=== PATIENT | female | born 1985 | race Hispanic/Latino ===

== ENCOUNTER 2024-11-15 08:38 | Inpatient (IN) | payer OTHER, SELFPAY ==
[2024-11-13] VITALS (10 sets, daily range): BP systolic 137–173; BP diastolic 85–114
[2024-11-13] MEDS: NSS 1000 IV (04:27)
--- NOTE | 2024-11-13 04:32 | EDRN ---
patient ambulated to the restroom, dizzy with ambulation
[2024-11-13 04:48] LABS: Urine Character Cloudy (Clear)
[2024-11-13 04:49] LABS: Hematocrit 31.0 % (37.0-47.0); Hemoglobin 9.5 g/dL (12.0-16.0); Mean Corp Hgb Conc. 30.6 g/dL (33.0-37.0); Mean Corpuscular Volume 73.3 fL (81.0-99.0); Nucleated Red Blood Cells % 0 %; Platelet Count 335 10^3/uL (130-400); Red Cell Dist. Width 16.1 % (11.5-14.5)
[2024-11-13 04:57] LABS: HCG, Serum Qualitative Screen Negative
[2024-11-13 04:59] LABS: ALT (SGPT) 12 U/L (0-35); AST (SGOT) 19 U/L (14-36); Albumin 4.7 g/dl (3.5-5.0); Alkaline Phosphatase 96 U/L (38-126); Blood Urea Nitrogen 12 mg/dl (7-17); Calcium 9.4 mg/dl (8.4-10.2); Carbon Dioxide 24 mmol/L (22-30); Chloride 104 mmol/L (98-107); Glucose 140 mg/dl (70-99); Lipase 60 U/L (23-300); Potassium 3.8 mmol/L (3.5-5.1); Sodium 137 mmol/L (135-145); Total Protein 8.0 g/dl (6.3-8.2); eGFR > 60.00
--- NOTE | 2024-11-13 06:50 | EDRN ---
Patient needed to use the restroom, walked with patient into the bathroom, patient is unstable on her feet at this time due to dizziness.
--- NOTE | 2024-11-13 06:51 | ED.GENMED ---
History of Present Illness
General
Chief Complaint: Abdominal Symptoms
Source: patient
Exam Limitations: none
Time Seen by Provider: 11/13/24 06:18
Nursing documentation reviewed up to this point in time: agreed with
History of Present Illness
History of Present Illness:
39-year-old female 3 weeks of dizziness nausea vomiting
Denies headache denies abdominal pain denies alcohol
Non-smoker
Denies
If applicable-neuro sx onset
Onset of symptoms known: No
Time pt last seen normal is known: No
Phy Exam
Physical Exam
Physical Exam:
Physical Exam
General: 39 female who looks uncomfortable but nontoxic
Neck: No tongue bite
Heart: s1/s2 regular rate and rhythm, no murmur. equal radial pulses.
Lungs: no acute respiratory distress. clear bilaterally
Abdomen: Nontender
Neuro: alert and oriented. Normal [id number] bilaterally, right facial palsy
Skin: no rash
Psychiatric: cooperative
Extremities: no edema.
Course
Orders/Labs/Results
Orders:
Orders
11/13/24 03:52
IV Insert/Care/Rem.- Treatment PRN
Test Result ONCE
11/13/24 04:24
Complete Blood Count/With Diff Urgent
Comprehensive Metabolic Panel Urgent
Ferritin Urgent
Comment: ADD ON
Folate Urgent
Comment: ADD ON
HCG, Serum Qualitative Screen Urgent
Comment: Notify provider if positive test present
Iron Urgent
Comment: ADD ON
Lipase Urgent
Lyme Progressive Urgent
Date Specimen was Collected: 11/13/24
Time Specimen was Collected: 03:52
Comment: ADD ON
Total Iron Binding Urgent
Comment: ADD ON
Urinalysis Reflex To Culture Urgent
Date Specimen was Collected: 11/13/24
Time Specimen was Collected: 03:52
Vitamin B12 Urgent
Comment: ADD ON
11/13/24 04:26
0.9% Sodium Chloride 1000 ml [Nss] 1,000 ml IV BOLUS
11/13/24 06:36
CT Head W/o Iv Contrast Urgent
Comment:
Reason For Exam: nausea vomitign
Ondansetron Injectable [Zofran] 4 mg IV NOW STA
11/13/24 07:00
Add On- LAB Urgent
Tests Added?: Lyme progressive
11/13/24 08:33
NEUROLOGY CONSULT Urgent
Consulting Provider: Mauri Figueroa
Was physician already notified: Yes
11/13/24 08:40
Acetaminophen 1000MG/100Ml [Ofirmev] 1,000 mg in 100 ml IV ONCE
Acetaminophen IV Indication:: No CO & No Enteral Access
11/13/24 09:14
Brain W/O & With Contrast MR [MR Brain W/o & With Contrast] Stat
Comment:
Reason For Exam: stroke vs mass
OK for patient to be off Cardiac Monitoring for MRI: Yes
Recent pill cam endoscopy?: No
11/13/24 Lunch
Regular
At Your Request: Full Participation
Does patient need a safe tray?: No
11/13/24 11:51
CT Head & Neck Angio W/wo IV Urgent
Comment:
Reason For Exam: stroke possible dissection
11/13/24 12:17
Admit/Transfer Patient As Directed
Co-Sign Provider:
Level of Care: Observation services
Assign to:: Telemetry
Physician / Group: cliff conway
Diagnosis: acute cerebellar cva
Reason for Telemetry: CVA/TIA
Date to Stop Telemetry: 11/16/24
Time to Stop Telemetry: 11:00
Code Status As Directed
Resuscitation Status: Full Code
11/13/24 12:21
PRN Pain Medication Management As Directed
May give lesser potent ordered pain med per pt: Yes
preference::
Protocol:: Medication orders for pain may be administered in a
manner that supports deferring to patient preference
when the pt is:
- Requesting an ordered lesser potent pain medication.
Least to most potent pain medications are defined
as: acetaminophen < NSAID < tramadol < opioids
(morphine, oxycodone, hydromorphone).
- Requesting a lesser dose of the same medication IF
ORDERED.
- Requesting a less intrusive route of administration
if both routes are prescribed by the provider (PO <
IV).
11/13/24 12:29
Aspirin 325 mg PO NOW STA
Clopidogrel Bisulfate [Plavix] 300 mg PO NOW STA
11/13/24 12:30
Atorvastatin [Lipitor] 40 mg PO NOW STA
11/13/24 12:32
Add On- LAB Urgent
Tests Added?: iron, ferritin, tibc, b12 folate
11/13/24 13:48
Acetaminophen [Tylenol] 650 mg PO Q4HPRN PRN
Ondansetron Injectable [Zofran] 4 mg IV Q6HPRN PRN
11/13/24 13:48
Case Management Consult ONCE
Case Management Consult: Discharge Planning
Comment: stroke/tia
DIETARY IP CONSULT Routine
Reason for Consult: stroke/TIA
Waste Management Engineer Urgent
Activity As Directed
Activity Level: As Tolerated
NIH Stroke Scale As Directed
Directions: Per protocol
Comment: every shift and with any change in condition or mental status
Neurological Checks As Directed
Frequency: q4h
Additional Instructions:: q4h x 24h upon admission to the floor, then qshift & with any change in condition
and mental status
Patient Education As Directed
Type: Stroke education packet
Comment: provide to patient and family
Sequential Compression Device [Pneumatic Compression Sleeves] As Directed
Type: Knee high
Swallow Screening CVA/TIA ONLY As Directed
Comment: NPO until swallowing screening completed
If patient FAILS swallow screening:: NPO, Speech Therapy consult, Aspiration Precautions
If patient PASSES swallow screening, diet:: Regular
Above diet order entered?: Yes- passed screening
Vital Signs As Directed
Frequency: Per unit guidelines
Ot Eval And Treat Routine
Pt Eval And Treat Routine
Activity Level: As Tolerated
Speech Therapy Eval & Treat Routine
DX Deep Vein Thrombosis Video Routine
11/13/24 15:23
Comprehensive Metabolic Panel Routine
Glycohemoglobin (HgbA1c) Routine
11/14/24 06:00
Echo 2D MMode Color/Doppler IN AM
Reason for Study: acute cerebellar cva
11/14/24 06:22
Cardiovascular Evaluation IN AM
Complete Blood Count/With Diff IN AM
Magnesium IN AM
11/14/24 08:00
Aspirin Chewable [Low Strength Aspirin] 81 mg PO DAILY
Clopidogrel Bisulfate [Plavix] 75 mg PO DAILY
11/14/24 09:00
Flush (0.9% Sodium Chloride) [Flush (Nss)] See Dose Instructions IV PER PROTOCOL
11/14/24 11:00
dimenhyDRINATE 50 mg IV Q8H
11/14/24 11:15
0.9% Sodium Chloride [Nss (Preservative Free)] 10 ml INJ Q8
dimenhyDRINATE 50 mg IV Q8
11/14/24 12:00
0.9% Sodium Chloride [Nss (Preservative Free)] 10 ml INJ Q8H
dimenhyDRINATE 50 mg IV Q8H
11/14/24 12:27
MA [facility] [place] [facility] [place] [facility] [place] [facility] Routine
Reason For Exam: right cerebellar cva acute
OK for patient to be off Cardiac Monitoring for MRI: Yes
Recent pill cam endoscopy?: No
Pacemaker/Defibrillator?: No
MA Neck With Contrast Routine
Reason For Exam: right cerebellar cva acute
OK for patient to be off Cardiac Monitoring for MRI: Yes
Recent pill cam endoscopy?: No
11/14/24 14:00
Ferric Gluconate [Ferrlecit] 125 mg 0.9% Sodium Chloride 100 ml [Nss] 100 ml IV ONCE@1400
11/14/24 18:00
Atorvastatin [Lipitor] 40 mg PO QPM
11/14/24 22:00
Ferrous Sulfate [Feosol] 325 mg PO HS
11/15/24 06:02
Basic Metabolic Panel IN AM
Complete Blood Count/No Diff IN AM
11/15/24 14:00
Ferric Gluconate [Ferrlecit] 125 mg 0.9% Sodium Chloride 100 ml [Nss] 100 ml IV DAILY@1400
11/16/24 06:00
Basic Metabolic Panel IN AM
Complete Blood Count/No Diff IN AM
11/16/24 11:00
DC Protocol for Telemetry ONCE
Abnormal Lab Results
11/13/24 11/13/24 11/14/24
04:24 15:23 06:22
WBC 11.5 H 10^3/uL
(4.8-10.8)
RBC 4.18 L 10^6/uL
(4.20-5.40)
Hgb 9.5 L g/dL 9.3 L g/dL
(12.0-16.0) (12.0-16.0)
Hct 31.0 L % 30.8 L %
(37.0-47.0) (37.0-47.0)
MCV 73.3 L fL 73.7 L fL
(81.0-99.0) (81.0-99.0)
MCH 22.5 L pg 22.2 L pg
(27.0-31.0) (27.0-31.0)
MCHC 30.6 L g/dL 30.2 L g/dL
(33.0-37.0) (33.0-37.0)
RDW 16.1 H % 16.0 H %
(11.5-14.5) (11.5-14.5)
Abs Immat Gran (auto) 0.1 H 10^3/uL
(0-0.05)
Absolute Neuts (auto) 8.5 H 10^3/uL
(1.4-6.5)
Absolute Monos (auto) 0.7 H 10^3/uL
(0.1-0.6)
Lymphocytes % 18.2 L %
(20.5-51.1)
Sodium 134 L mmol/L
(135-145)
Chloride
Creatinine 0.5 L mg/dL
(0.6-1.0)
Glucose 140 H mg/dl 105 H mg/dl
(70-99) (70-99)
Magnesium 2.4 H mg/dl
(1.6-2.3)
Iron 24 L ug/dl
(37-170)
% Saturation 5 L %
(20-50)
Ferritin 4.6 L ng/ml
(6.24-137)
11/15/24
06:02
WBC
RBC 4.10 L 10^6/uL
(4.20-5.40)
Hgb 9.4 L g/dL
(12.0-16.0)
Hct 30.6 L %
(37.0-47.0)
MCV 74.6 L fL
(81.0-99.0)
MCH 22.9 L pg
(27.0-31.0)
MCHC 30.7 L g/dL
(33.0-37.0)
RDW 15.9 H %
(11.5-14.5)
Abs Immat Gran (auto)
Absolute Neuts (auto)
Absolute Monos (auto)
Lymphocytes %
Sodium
Chloride 108 H mmol/L
(98-107)
Creatinine
Glucose
Magnesium
Iron
% Saturation
Ferritin
11/15/24 06:02
11/15/24 06:02
Vital Signs
Initial and Last Documented VS:
Initial Vital Signs
Temp Pulse Resp BP Pulse Ox
96.8 F L 75 20 173/100 94
11/13/24 02:38 11/13/24 02:38 11/13/24 02:38 11/13/24 02:38 11/13/24 02:38
Last Documented Vital Signs
Temp Pulse Resp BP Pulse Ox
98.2 F 66 20 154/88 95
11/15/24 19:00 11/15/24 19:00 11/15/24 19:00 11/15/24 19:00 11/15/24 19:00
MDM/Problems Addressed
Differential Diagnosis Includes:
Ataxia, vertigo, mass malignancy hemorrhage does not appear to be intoxicated
MDM/Problems Addressed:
Nausea vomiting x 3 weeks
*Pulse Oximetry
SaO2: 97
Oxygen Mode of Delivery: Room air
Patient hypoxic: no
*Critical Care Note
Total Time (30-74mins, 75-104mins- exclusive of procedures): 180
Update Note
Update Note:
Update reviewed with radiology acute versus subacute cerebellar stroke less likely mass, fits clinically neurology and hospitalist notified
ED Attending Note
-
Portions of this chart may have been created with voice recognition software.� Occasional wrong word or��sound alike� substitutions may have occurred due to the inherent limitations of voice recognition software.
Discharge Plan
Departure
Patient Disposition: Admit
Date of Disposition: 11/13/24
Time of Disposition: 08:34
Admit to: Telemetry
Presentation/result/management discussed w/ accepting MD/DO: Hospitalist
Patient with high blood pressure during this ER visit?: Yes
Condition: Fair
Discharge Problem:
cva
Interventions
Interventions:
*General Assessment Last Done: 11/13/24 02:38
*Neglect/Abuse Screening Last Done: 11/13/24 04:27
*ED- Fall Risk Assessment Last Done: 11/13/24 02:38
*Nursing Disposition Last Done: 11/13/24 13:55
PU-Xgbswi-[id number] Assessment Last Done: 11/13/24 04:27
Discharge Date and Time
Discharge Date/Time: 11/13/24 13:55
[2024-11-13] MEDS: ZOFRAN 4 MG IV ×2 (07:18→17:23)
[2024-11-13] MEDS: OFIRMEV 100 IV (08:53)
--- NOTE | 2024-11-13 12:33 | CM ---
Cm reviewed chart and met with pt and her SO Josh bedside in ED. Both are primarily Luxembourgish speaking but could answer some questions. They live in a one story home. Independent at baseline, no DME.
Pt confirms she does not have insurance, is agreeable to speaking to [facility] tomorrow, email sent.
Does not have PCP, uses [facility].
Anticipate discharge home, CM will continue to follow for any discharge planning needs.
--- NOTE | 2024-11-13 12:37 | HPS.HSE ---
Family Physician
-
Family Physician: NOT KNOW UNKNOWN - PT DOES
Chief Complaint
-
vision loss, headache and dizziness
History of Present Illness
39-year-old Chinese-speaking female past medical history of hypertension presenting with blurry vision and vision loss, headache and vomiting and dizziness starting last night around midnight. She also had numbness of her right jaw. Symptoms have
since resolved and her vision is back to normal. She had a similar episode of vision loss around a week ago which lasted a few minutes with fatigue. She did have some vomiting this morning. Denies any numbness or tingling elsewhere in the body.
She has generalized weakness.
She did not have any slurred speech or confusion or facial droop as per .
She denies any chest pain. She has some shortness of breath.
She states she was diagnosed with high blood pressure 5 years ago. She was told that she had a problem with the vein in her heart but denies any other cardiac problems.
Her mother had high blood pressure. No family history of cardiac problems, strokes or autoimmune disorders.
She denies smoking or alcohol or drugs.
Medical History
Past Medical History
Past Medical History: Reports Other ( hypertension)
Past Surgical History: Reports Other (tubal ligation )
Social History
Tobacco: Non-smoker
Alcohol: None
Drug: None
Family History
Family History: Not pertinent
Allergies / Home Medications
Allergies reflects when Allergies were last updated in [employer].
Home Medications with original date entered in [employer]
Allergy/Medication List:
Allergies
Allergy/AdvReac Type Severity Reaction Status Date / Time
No Known Allergies Allergy Unverified 11/13/24 04:25
Home Medications
No Meds [No Current Medications] 11/13/24
Review of Systems
-
History Source: Patient
A 12 point ROS was completed and negative except as noted: Yes
Constitutional: Reports No Symptoms
EENT: Reports No Symptoms
Respiratory: Reports No Symptoms
Cardiac: Reports No Symptoms
Abdomen/GI: Reports No Symptoms
: Reports No Symptoms
Musculoskeletal: Reports No Symptoms
Skin: Reports No Symptoms
Neurological: Reports See HPI
Endocrine: Reports No Symptoms
Hematologic/Lymphatic: Reports No Symptoms
Psych: Reports No Symptoms
Physical Exam
Vital Signs
Vital Signs
Temp Pulse Resp BP Pulse Ox
96.8 F L 75 20 154/107 95
11/13/24 02:38 11/13/24 02:38 11/13/24 02:38 11/13/24 08:00 11/13/24 08:00
Physical Exam
General: Well Developed, Well Nourished and No Apparent Distress
HEENT: NormoCephalic, Moist mucous membranes and Atraumatic
Respiratory: Clear
Cardiac: S1/S2 and Regular Rhythm; No Murmur or Rub
GI: Soft, Non Tender, Non Distended and Normal Bowel Sounds; No Organomegaly
Rectal: Deferred by Provider
Musculoskeletal: No Clubbing, No Cyanosis, No Edema and Other (bilteral leg drift )
Skin: No Rash
Neuro: Nonfocal/grossly intact
Laboratory Results
-
11/13/24 04:24
11/13/24 04:24
Laboratory Results
Total Bilirubin 0.3 mg/dl (0.2-1.3) 11/13/24 04:24
AST 19 U/L (14-36) 11/13/24 04:24
ALT 12 U/L (0-35) 11/13/24 04:24
Alkaline Phosphatase 96 U/L (38-126) 11/13/24 04:24
Lipase 60 U/L (23-300) 11/13/24 04:24
Data Reviewed
-
Lab Data: Labs Reviewed by me
Old Records: Reviewed
Impression/Plan
-
IMPRESSION:
PLAN:
# Acute/subacute infarct of right cerebellum
-bilateral leg drift on exam, no other neurological deficits at this time, right facial assymetry noted by ER
-CT head shows low-attenuation in the lateral right cerebellum
-UA unremarkable
- Stat MRI brain shows 4.4 cm infarct of right cerebellum
- Aspirin and Plavix started
- Start statin
- Check CTA head and neck, will also require MRA head and neck
-Check A1c and lipid panel
-Lyme serology pending
-Check echo
-Speech evaluation, PT OT
-Permissive hypertension until midnight tonight
- Neurology following
# Microcytic anemia probably chronic from menses
-Hemoglobin 9.5
- May be secondary to menstrual bleeding
- Check iron studies
Essential hypertension
- Not on medications
Full code
DVT prophylaxis�SCDs
Regular diet
[2024-11-13] MEDS: PLAVIX 300 MG PO (13:22)
[2024-11-13] MEDS: ASPIRIN 325 MG PO (13:22)
[2024-11-13] MEDS: LIPITOR 40 MG PO (14:25)
[2024-11-13 14:44] LABS: Ferritin 4.6 ng/ml (6.24-137)
[2024-11-13 14:51] LABS: Iron 24 ug/dl (37-170)
[2024-11-13 15:01] LABS: Total Iron Binding Capacity 421 ug/dl (265-497)
[2024-11-13 15:34] LABS: Folate 14.6 ng/ml (2.76-20); Vitamin B12 669 pg/ml (239-931)
[2024-11-13 15:59] LABS: ALT (SGPT) 10 U/L (0-35); AST (SGOT) 19 U/L (14-36); Albumin 4.4 g/dl (3.5-5.0); Alkaline Phosphatase 90 U/L (38-126); Blood Urea Nitrogen 8 mg/dl (7-17); Calcium 8.9 mg/dl (8.4-10.2); Carbon Dioxide 22 mmol/L (22-30); Chloride 103 mmol/L (98-107); Glucose 105 mg/dl (70-99); Potassium 3.6 mmol/L (3.5-5.1); Sodium 134 mmol/L (135-145); Total Protein 7.5 g/dl (6.3-8.2); eGFR > 60.00
--- NOTE | 2024-11-13 17:47 | CON.NEURO ---
Neuro Assessment/Plan
Assessment
initial head CT imaging and did not believe that it looked like a 2-week old right cerebellar stroke; it appeared as a ~12 hr old stroke, tumor, or artifact given slight hypoattenuation.
Stat MRI confirmed acute stroke right cerebellum,
CTA head/neck images reviewed, segment of proximal right vertebral artery occlusion/stenosis, consistent with vertebral artery dissection
39 yr old woman, right cerebellar stroke, VAD suspected clinically and on CTA
MRA was ordered to confirm
patient loaded ASA 325 and Plavix 300 in ED,
continue ASA 81 and Plavix 75
Lipitor 40 ordered though atherosclerosis does not appear to be the etiology; pending lipid panel
Consultation
Order
Date of Consultation: 11/13/24
Requesting Provider: Fabiano
Reason for Consult: cerebellar hypodensity
Subjective/Objective
Subjective Data
Date of Service: November 13, 2024
from h&p:
39-year-old Telugu-speaking female past medical history of hypertension presenting with blurry vision and vision loss, headache and vomiting and dizziness starting last night around midnight. She also had numbness of her right jaw. Symptoms have
since resolved and her vision is back to normal. She had a similar episode of vision loss around a week ago which lasted a few minutes with fatigue. She did have some vomiting this morning. Denies any numbness or tingling elsewhere in the body.
She has generalized weakness.
She did not have any slurred speech or confusion or facial droop as per .
She denies any chest pain. She has some shortness of breath.
She states she was diagnosed with high blood pressure 5 years ago. She was told that she had a problem with the vein in her heart but denies any other cardiac problems.
Her mother had high blood pressure. No family history of cardiac problems, strokes or autoimmune disorders.
She denies smoking or alcohol or drugs.
I saw her this morning in the ED with Dr Mario. I reviewed the initial head CT imaging and did not believe that it looked like a 2-week old right cerebellar stroke; it appeared as a ~12 hr old stroke, tumor, or artifact
Stat MRI confirmed acute stroke right cerebellum, and I recommended CTA to eval for vertebral artery stenosis/dissection as it would be quicker than sending her back to MRI.
Objective Data
Vital Signs
Temp Pulse Resp BP Pulse Ox
36.4 C 66 18 155/92 97
11/13/24 15:17 11/13/24 15:17 11/13/24 15:17 11/13/24 15:17 11/13/24 15:17
Lab Results
11/13/24 04:24
11/13/24 15:23
Sodium 134 mmol/L (135-145) L 11/13/24 15:23
Potassium 3.6 mmol/L (3.5-5.1) 11/13/24 15:23
BUN 8 mg/dl (7-17) 11/13/24 15:23
Glucose 105 mg/dl (70-99) H 11/13/24 15:23
Calcium 8.9 mg/dl (8.4-10.2) 11/13/24 15:23
Vitamin B12 669 pg/ml (239-931) 11/13/24 04:24
Patient Allergies
No Known Allergies Allergy (Unverified 11/13/24 04:25)
Medications
-
Active Medications
Generic Name Dose Route Start Last Admin
Trade Name Freq PRN Reason Stop Dose Admin
Acetaminophen 650 mg 11/13/24 13:48
Acetaminophen 325 Mg Tablet PO 12/11/24 13:47
Q4HPRN PRN
KRISHNAN, mild pain, or temp >100.4F
Aspirin 81 mg 11/14/24 08:00
Aspirin 81 Mg Chewable Tablet PO 12/12/24 07:59
DAILY KEVIN
Atorvastatin Calcium 40 mg 11/14/24 18:00
Atorvastatin (Lipitor) 40 Mg Tablet PO 12/12/24 17:59
QPM KEVIN
Clopidogrel Bisulfate 75 mg 11/14/24 08:00
Clopidogrel 75 Mg Tablet PO 12/05/24 07:59
DAILY KEVIN
Ondansetron HCl 4 mg 11/13/24 13:48 11/13/24 17:23
Ondansetron 4 Mg/2 Ml Vial IV 12/11/24 13:47 4 mg
Q6HPRN PRN Administration
NAUSEA/VOMITING
Home Medications
�Medication �Instructions �Recorded
No Meds [No Current Medications] 11/13/24
--- NOTE | 2024-11-13 21:55 | PTCARENOTE ---
pt states her face numbness is improving. she has more sensation
[2024-11-14] VITALS (8 sets, daily range): BP systolic 137–152; BP diastolic 78–88; O2SAT 100
[2024-11-14 07:09] LABS: Hematocrit 30.8 % (37.0-47.0); Hemoglobin 9.3 g/dL (12.0-16.0); Mean Corp Hgb Conc. 30.2 g/dL (33.0-37.0); Mean Corpuscular Volume 73.7 fL (81.0-99.0); Nucleated Red Blood Cells % 0 %; Platelet Count 328 10^3/uL (130-400); Red Cell Dist. Width 16.0 % (11.5-14.5)
[2024-11-14 07:51] LABS: HDL Cholesterol 40 mg/dl; LDL Cholesterol, Calculated 119 mg/dl; Magnesium 2.4 mg/dl (1.6-2.3); Very Low Density Lipoprotein 23 mg/dl (0-30)
[2024-11-14] MEDS: PLAVIX 75 MG PO (07:58)
[2024-11-14] MEDS: LOW STRENGTH ASPIRIN 81 MG PO (07:58)
--- NOTE | 2024-11-14 09:25 | PTOTSP ---
Speech Language Pathology
Pt seen for speech/language evaluation. Evaluation completed in [place]. No dysarthria noted in conversation; however, when completed diadochokinetic (DDK) rates, incoordination/ataxia noted. Language evaluated via the Quick Aphasia Battery
(QAB), form 1, in [place]. Pt with an overall score of 9.39, indicative of language skills WFL. Scored mildly impaired on subtests of sentence comprehension and word-finding. No anomia noted in conversation, but was noted in confrontation naming.
Phonemic cueing effective.
Pt also seen for clinical bedside swallow evaluation. Seen with breakfast tray of regular solids and thin liquids. Minimal consumed given nausea. However, adequate mastication, bolus formation, and A-P transit noted with no oral residue. No
overt signs of aspiration.
Recommend:
(1) Regular solids/thin liquids
(2) General aspiration precautions
(3) Meds as tolerated
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 Further dysphagia services not indicated.
--- NOTE | 2024-11-14 09:48 | W.PN.NEURO.1 ---
Addendum entered and electronically signed by Xander Leonardo MD 11/14/24 12:02:
Studies reviewed.
I have personally examined the patient. I reviewed and agree with the SOCIAL WORK JOB TITLES's Note.
My addenda:
Awake, alert, interactive. No acute distress.
Speech intact.
Follows 2-step requests w/o difficulty. No tremor.
Extra-ocular movements with beating nystagmus with right gaze absent with left gaze
Facial movements full and symmetric. Hearing intact to normal conversational volume.
Normal UE movements bilaterally.
Neck: full ROM.
Chest: no dyspnea
Heart: no JVD
Ext: (-) Clubbing, (-) Cyanosis, (-) Edema
IMPRESSIONS/RECOMMENDATIONS:
Subacute onset of vertigo and ataxia
Secondary to subacute appearing right cerebellar ischemic stroke which in turn is most likely due to occlusion of the right vertebral artery. It is unclear if a dissection is the actual cause
Check MRA head and neck for determination if the patient is experiencing either dissection or occlusion
Would use aspirin alone for stroke prevention, discontinue clopidogrel
Continued neurological monitoring due to high risk for the patient having edema and herniation
Continue physical therapy and Occupational Therapy
Provide ondansetron for nausea
Provide dimenhydrinate 50 mg IV for vertigo
Patient might require neurosurgical evaluation if profound worsening
D/W patient via telephone maintenance mechanic
All questions answered.
Will continue to follow patient.
Original Note:
Documented by User: Tammi Dejesus NP 11/14/24 11:09
Today's Communication / Plan
-
-obtain MRA as planned
-goal LDL<70, current LDL 119 continue atorvastatin 40 mg nightly
-continue aspirin 81 mg daily and discontinue clopidogrel as she runs the risk of hemorrhagic conversion
-goal normotension
-give dimenhydrinate to treat dizziness
-give ondansetron to treat nausea
-ferritin level 4.6, give Ferrous Sulfate 325 mg po and Ferric Sodium Gluconate 125 mg IV
-neurochecks and NIHSS per unit guidelines
-stroke education material to be provided
-ST/OT/PT evaluations
Neuro Assessment/Plan
Assessment
initial head CT imaging with low-attenuation in the lateral right cerebellum. While this could be artifactual, acute/subacute ischemia or an underlying lesion are not excluded.
Stat MRI confirmed acute stroke right cerebellum,
CTA head/neck images reviewed, segment of proximal right vertebral artery occlusion/stenosis, consistent with vertebral artery dissection
39 yr old woman, right cerebellar stroke, VAD suspected clinically and on CTA
MRA was ordered to confirm
patient loaded ASA 325 and Plavix 300 in ED,
continue ASA 81 and Plavix 75
Lipitor 40 ordered, LDL 119
Plan
Impression: abrupt onset of dizziness with nausea and vomiting found to have right ischemic cerebellar stroke on brain MRI with vertebral artery dissection
-obtain MRA as planned
-goal LDL<70, current LDL 119 continue atorvastatin 40 mg nightly
-continue aspirin 81 mg daily and discontinue clopidogrel as she runs the risk of hemorrhagic conversion
-goal normotension
-give dimenhydrinate to treat dizziness
-give ondansetron to treat nausea
-ferritin level 4.6, give Ferrous Sulfate 325 mg po and Ferric Sodium Gluconate 125 mg IV
-neurochecks and NIHSS per unit guidelines
-stroke education material to be provided
-ST/OT/PT evaluations
All questions encouraged and answered, plan of care discussed with Dr. Leonardo an patient
Subjective/Objective
Subjective Data
Date of Service: November 14, 2024
No acute overnight events. Continues with dizziness, nausea, blurry vision and right facial numbness.
Objective Data
Vital Signs
Temp Pulse Resp BP Pulse Ox
98.1 F 63 16 142/78 99
11/14/24 07:34 11/14/24 07:34 11/14/24 07:34 11/14/24 07:34 11/14/24 07:34
Lab Results
11/14/24 06:22
11/13/24 15:23
Sodium 134 mmol/L (135-145) L 11/13/24 15:23
Potassium 3.6 mmol/L (3.5-5.1) 11/13/24 15:23
BUN 8 mg/dl (7-17) 11/13/24 15:23
Glucose 105 mg/dl (70-99) H 11/13/24 15:23
Calcium 8.9 mg/dl (8.4-10.2) 11/13/24 15:23
LDL Cholesterol, Calc 119 mg/dl 11/14/24 06:22
Vitamin B12 669 pg/ml (239-931) 11/13/24 04:24
Patient Allergies
No Known Allergies Allergy (Unverified 11/13/24 04:25)
Physical Exam
-
General: Comfortable and Appears Stated Age
HEENT: Normocephalic, Atraumatic and Anicteric
Neck: Full Range of Motion
Respiratory: No Dyspnea
Cardiac: No JVD
GI: Non-distended
Skin: Unremarkable
Extremities: No Clubbing, No Cyanosis and No Edema
Psych: Unremarkable
Extended Neurological Exam
Mood & Affect: Mood Unremarkable
Attention Span & Concentration: Awake, Alert, Interactive and No Difficulty with 2 Step Request
Memory: Unremarkable
Tremor: Hand Tremor Absent and Head Tremor Absent
Speech: Quality Unremarkable, Quantity Unremarkable and Rate of Production Unremarkable
Cranial Nerve II: Left Eye: Visual [place] Intact
Cranial Nerve II: Right Eye: Visual [place] Intact
Cranial Nerves III, IV, : Extraocular Movement: Nystagmus with Extreme Gaze to Right
Cranial Nerve VII: Facial Symmetry: Normal Facial Symmetry
Cranial Nerve VIII: Hearing: Unremarkable Hearing to Normal Conversational Volume
Muscle Strength, Overall: Spontaneously Moves
Pronator Drift: No Drift in Upper Extremities and No Drift in Lower Extremities
Coordination: [id number] Testing Unremarkable and Reaches for Objects without Difficulty
Data Reviewed
-
CT-A: Report Reviewed and Image Reviewed
CT Head: Report Reviewed and Image Reviewed
CT Cervical Spine: Report Reviewed and Image Reviewed
MRI Head: Report Reviewed and Image Reviewed
MRA Head: Image Reviewed
Lipid Profile: Report Reviewed
Reviewed with: Physician, Nurse and Patient
Old Records: Summarized

Documented by User: Xander Leonardo MD 11/14/24 11:49
Neuro Assessment/Plan
Assessment
initial head CT imaging with low-attenuation in the lateral right cerebellum. While this could be artifactual, acute/subacute ischemia or an underlying lesion are not excluded.
Stat MRI confirmed acute stroke right cerebellum,
CTA head/neck images reviewed, segment of proximal right vertebral artery occlusion/stenosis, consistent with vertebral artery dissection
39 yr old woman, right cerebellar stroke, VAD suspected clinically and on CTA
MRA was ordered to confirm
patient loaded ASA 325 and Plavix 300 in ED,
continue ASA 81 and Plavix 75
Lipitor 40 ordered, LDL 119
Impression: abrupt onset of dizziness with nausea and vomiting found to have right ischemic cerebellar stroke on brain MRI with vertebral artery dissection
Plan
-obtain MRA as planned
-goal LDL<70, current LDL 119 continue atorvastatin 40 mg nightly
-continue aspirin 81 mg daily and discontinue clopidogrel as she runs the risk of hemorrhagic conversion
-goal normotension
-give dimenhydrinate to treat dizziness
-give ondansetron to treat nausea
-ferritin level 4.6, give Ferrous Sulfate 325 mg po and Ferric Sodium Gluconate 125 mg IV
-neurochecks and NIHSS per unit guidelines
-stroke education material to be provided
-ST/OT/PT evaluations
All questions encouraged and answered, plan of care discussed with Dr. Leonardo an patient
Past History
Past History
ED Past Medical History: CVA
Medications
-
Medications:
Generic Name Dose Route Start Last Admin
Trade Name Freq PRN Reason Stop Dose Admin
Acetaminophen 650 mg 11/13/24 13:48
Acetaminophen 325 Mg Tablet PO 12/11/24 13:47
Q4HPRN PRN
KRISHNAN, mild pain, or temp >100.4F
Aspirin 81 mg 11/14/24 08:00 11/14/24 07:58
Aspirin 81 Mg Chewable Tablet PO 12/12/24 07:59 81 mg
DAILY KEVIN Administration
Atorvastatin Calcium 40 mg 11/14/24 18:00
Atorvastatin (Lipitor) 40 Mg Tablet PO 12/12/24 17:59
QPM KEVIN
Dimenhydrinate 50 mg 11/14/24 12:00
Dimenhydrinate 50 Mg/Ml Vial IV 12/12/24 11:59
Q8H KEVIN
Ferrous Sulfate 325 mg 11/14/24 22:00
Ferrous Sulfate 325 Mg Tablet PO 12/12/24 21:59
HS KEVIN
Ferric Sodium Gluconate 110 mls @ 110 mls/hr 11/14/24 14:00
Complex 125 mg/ Sodium IV 11/14/24 14:59
Chloride ONCE@1400 ONE
Ondansetron HCl 4 mg 11/13/24 13:48 11/13/24 17:23
Ondansetron 4 Mg/2 Ml Vial IV 12/11/24 13:47 4 mg
Q6HPRN PRN Administration
NAUSEA/VOMITING
Sodium Chloride 0 flush 11/14/24 09:00
Sodium Chloride 0.9% (Flush) Syringe IV 12/12/24 08:59
PER PROTOCOL KEVIN
Sodium Chloride 10 ml 11/14/24 12:00
Sodium Chloride 0.9% (Preservative Free) 10 Ml Vial INJ 12/12/24 11:59
8[facility]
--- NOTE | 2024-11-14 10:20 | CM ---
Chart reviewed. Patient being recommended for acute rehab. Patient w/ acute CVA.
Patient currently uninsured at this time, email was sent to Viviana/[facility] yesterday as patient is agreeable to assistance
[facility] admissions will follow patient as she meets criteria for acute. Will await until [facility] paperwork is submitted to see if patient qualifies for MA, otherwise, [facility] cannot accept.
Spoke w/ Viviana/[facility], confirmed receipt of email and will speak w/ the patient today. Will keep CM updated
[facility] referral completed in [facility]
Plan: Acute rehab recommended
[2024-11-14 10:39] LABS: Glycohemoglobin (HgbA1c) 5.2 % (4.0-5.6)
[2024-11-14] MEDS: dimenhyDRINATE 50 MG IV ×2 (11:58→20:18)
[2024-11-14] MEDS: NSS (PRESERVATIVE FREE) 10 ML INJ ×2 (11:59→20:18)
[2024-11-14] MEDS: ZOFRAN 4 MG IV (11:59)
[2024-11-14] MEDS: FERRLECIT 110 MG IV (13:42)
--- NOTE | 2024-11-14 14:53 | W.PN.HOSP.TC ---
Today's Communication/Plan
-
monitor mentation, neuro exam
continue ASA/Statin
follow Neuro recs
dispo planning
Assessment / Plan
Assessment / Plan
Assessment:
Acute Right cerebellar CVA with onset of vertigo/ataxia/facial numbness (right)
- MRI: 4.4 cm acute or subacute infarct in the right cerebellum
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 Mild flow in the mid to distal right vertebral artery, although smaller in caliber and again may be from retrograde or collateral blood flow.
- Echo: normal
- continue ASA. Plavix stopped per Neuro
- continue Statin; LDL 119
- A1c is 5.2%
- PT/OT/ST
- Neurology following
Microcytic anemia probably chronic from menses
- Hemoglobin 9.5
- May be secondary to menstrual bleeding
- iron deficiency on labs
- IV Iron ordered
Essential hypertension
- Not on medications
DVT ppx: SCDs
Code: Full
Dispo: possible acute rehab placement pending HSRI/MA pending status
Anticipated Discharge: 24 - 48 hours
Subjective/Interval History
-
Date of Service: November 14, 2024
continues with dizziness, blurry vision, R facial numbness
Objective Data
-
Labs:
Laboratory Results
11/14/24
06:22
WBC 7.1
Hgb 9.3 L
Hct 30.8 L
Plt Count 328
Vital Signs:
Vital Signs
Temp Pulse Resp BP Pulse Ox
98.0 F 74 16 138/78 98
11/14/24 11:15 11/14/24 11:15 11/14/24 11:15 11/14/24 11:15 11/14/24 11:15
I&O
11/13/24 11/14/24 11/15/24
06:59 06:59 06:59
Intake Total 220 / 220
Balance 220 / 220
Physical Exam
-
General: No Apparent Distress
HEENT: Normocephalic and Atraumatic
Respiratory: Clear to Auscultation; Negative Wheezes
Cardiac: Regular Rhythm and S1/S2
GI: Soft and Nontender
Neuro: AO x 3 and Other (R facial numbness)
Psych: Calm
Data Reviewed
-
Total Time Spent with Patient (in minutes): 42
MRI: Report Reviewed by me
Labs: Labs Reviewed by me
[2024-11-14 15:57] LABS: Lyme Antibody Screen, EIA Negative (Negative)
[2024-11-14] MEDS: LIPITOR 40 MG PO (17:33)
[2024-11-14] MEDS: FEOSOL 325 MG PO (20:19)
[2024-11-15] VITALS (8 sets, daily range): BP systolic 135–159; BP diastolic 76–104
[2024-11-15] MEDS: NSS (PRESERVATIVE FREE) 10 ML INJ ×3 (04:03→19:33)
[2024-11-15] MEDS: dimenhyDRINATE 50 MG IV ×3 (04:03→19:33)
[2024-11-15 06:47] LABS: Hematocrit 30.6 % (37.0-47.0); Hemoglobin 9.4 g/dL (12.0-16.0); Mean Corp Hgb Conc. 30.7 g/dL (33.0-37.0); Mean Corpuscular Volume 74.6 fL (81.0-99.0); Platelet Count 309 10^3/uL (130-400); Red Cell Dist. Width 15.9 % (11.5-14.5)
[2024-11-15] MEDS: LOW STRENGTH ASPIRIN 81 MG PO (08:03)
[2024-11-15 08:21] LABS: Blood Urea Nitrogen 14 mg/dl (7-17); Calcium 8.8 mg/dl (8.4-10.2); Carbon Dioxide 25 mmol/L (22-30); Chloride 108 mmol/L (98-107); Glucose 78 mg/dl (70-99); Potassium 3.7 mmol/L (3.5-5.1); Sodium 140 mmol/L (135-145); eGFR > 60.00
--- NOTE | 2024-11-15 08:56 | W.PN.NEURO.1 ---
Addendum entered and electronically signed by Xander Leonardo MD 11/15/24 13:58:
Studies reviewed.
I have personally examined the patient. I reviewed and agree with the SURFACING MACHINE OPERATOR's Note.
My addenda:
Awake, alert, interactive. No acute distress.
Speech intact.No tremor.
Facial movements full and symmetric. Hearing intact to normal conversational volume.
Normal UE movements bilaterally.
Neck: full ROM.
Chest: no dyspnea
Heart: no JVD
Ext: (-) Clubbing, (-) Cyanosis, (-) Edema
IMPRESSIONS/RECOMMENDATIONS:
Subacute onset of vertigo and ataxia
Secondary to subacute appearing right cerebellar ischemic stroke which in turn is most likely due to occlusion of the right vertebral artery. It is unclear if a dissection is the actual cause
MRA head and neck for determination if the patient is experiencing either dissection or occlusion; results are equivocal
Would use aspirin alone for stroke prevention, discontinue clopidogrel
Continued neurological monitoring due to high risk for the patient having edema and herniation
Continue physical therapy and Occupational Therapy
Frmud-fof-sylns ondansetron for nausea
Provide dimenhydrinate 50 mg IV [id number] for vertigo
Patient might require neurosurgical evaluation if profound worsening
Will continue to follow patient.
Original Note:
Today's Communication / Plan
-
-continue dimenhydrinate 50 mg IV for dizziness hold for sedation
-start ondansetron 4 mg IV q 6 standing for nausea hold for sedation
-continue neurochecks and NIHSS per unit quidelines
-OT/PT evaluations
Neuro Assessment/Plan
Assessment
initial head CT imaging with low-attenuation in the lateral right cerebellum. While this could be artifactual, acute/subacute ischemia or an underlying lesion are not excluded.
Brain MRI: 4.4 cm acute or subacute infarct in the right cerebellum.
CTA head/neck images reviewed, segment of proximal right vertebral artery occlusion/stenosis
MRA head/neck: Similar findings compared to the recent head and neck CT angiogram from 11/13/2024. High-grade stenosis/occlusion at the origin of the right vertebral artery. Mild flow in the mid to distal right vertebral artery, although smaller in
caliber and again may be from retrograde or collateral blood flow. No high-grade stenosis or occlusion of the [place].
39 yr old woman, right cerebellar stroke, VAD suspected clinically and on CTA
patient loaded ASA 325 and Plavix 300 in ED,
continue ASA 81 and Plavix 75
Lipitor 40 ordered, LDL 119
Plan
Impression: abrupt onset of dizziness with nausea and vomiting found to have right ischemic cerebellar stroke on brain MRI
-goal LDL<70, current LDL 119 continue atorvastatin 40 mg nightly
-continue aspirin 81 mg daily and discontinue clopidogrel as she runs the risk of hemorrhagic conversion
-goal normotension
-give dimenhydrinate to treat dizziness
-give ondansetron to treat nausea
-ferritin level 4.6, give Ferrous Sulfate 325 mg po and Ferric Sodium Gluconate 125 mg IV
-neurochecks and NIHSS per unit guidelines
-stroke education material to be provided
-ST/OT/PT evaluations
All questions encouraged and answered, plan of care discussed with Dr. Leonardo an patient
Subjective/Objective
Subjective Data
Date of Service: November 15, 2024
No acute overnight events. Continues with right face sensory changes. Continues with dizziness and nausea. Also complains of fatigue.
Objective Data
Vital Signs
Temp Pulse Resp BP Pulse Ox
97.9 F 59 16 140/76 96
11/15/24 08:11 11/15/24 08:11 11/15/24 08:11 11/15/24 08:11 11/15/24 08:11
Lab Results
11/15/24 06:02
11/15/24 06:02
Sodium 140 mmol/L (135-145) 11/15/24 06:02
Potassium 3.7 mmol/L (3.5-5.1) 11/15/24 06:02
BUN 14 mg/dl (7-17) 11/15/24 06:02
Glucose 78 mg/dl (70-99) 11/15/24 06:02
Calcium 8.8 mg/dl (8.4-10.2) 11/15/24 06:02
LDL Cholesterol, Calc 119 mg/dl 11/14/24 06:22
Vitamin B12 669 pg/ml (239-931) 11/13/24 04:24
Patient Allergies
No Known Allergies Allergy (Unverified 11/13/24 04:25)
Data Reviewed
-
CT-A: Report Reviewed and Image Reviewed
CT Head: Report Reviewed and Image Reviewed
MRI Head: Report Reviewed
Labs: Report Reviewed
Reviewed with: Physician and Patient
Old Records: Summarized
--- NOTE | 2024-11-15 10:26 | CM ---
CM spoke w/ Viviana/[facility], was informed that patient is without citizenship so she unfortunately would not qualify for MA. Patient, however, would receive emergency MA for inpatient hospital stay but nothing continuous for rehab, home services or OP
services. Viviana mentioned hospitalist would have to fill out a emergency medical form that for emergency MA which would include service date and d/c date. However, it is an option for hospitalist to put d/c date 30 days out for inpatient since
patient will remain inpatient at rehab. This is not a guarantee patient will be approved, MILA was told the county will have to decide on this approval as they have to assess for medical need. Usually for the county to approve for continuous or
temporary MA past a hospital stay, there needs to be a critical or life threatening reason.
MILA spoke w/ [facility] liaison to review information shared above. Ch[facility] stated she will have to review this w/ her admission team
Updated hospitalist about the above
[2024-11-15] MEDS: ZOFRAN 4 MG IV ×3 (11:27→23:06)
[2024-11-15] MEDS: TYLENOL 650 MG PO (12:48)
[2024-11-15] MEDS: FERRLECIT 110 MG IV (12:49)
--- NOTE | 2024-11-15 16:32 | PTCARENOTE ---
Spoke with patient via language line. Stated her dizzyness and nausea were 'better than yesterday'. Did c/o a headache and received Tylenol which was effective . Gait is slightly unsteady and right sided facial droop present but minimal . Speech
is with slight slurring in am, improved once day went on. Patient spoke with hospitalist and stated her right ear hearing was impaired, this has been since yesterday. Will continue to monitor
[2024-11-15] MEDS: LIPITOR 40 MG PO (16:36)
--- NOTE | 2024-11-15 16:38 | W.PN.HOSP.TC ---
Today's Communication/Plan
-
re-evaluate symptoms in 24 hours and assess need for repeat imaging
Assessment / Plan
Assessment / Plan
Assessment:
Acute Right cerebellar CVA with onset of vertigo/ataxia/facial numbness (right)
- MRI: 4.4 cm acute or subacute infarct in the right cerebellum
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 Mild flow in the mid to distal right vertebral artery, although smaller in caliber and again may be from retrograde or collateral blood flow.
- Echo: normal
- continue ASA. Plavix stopped per Neuro
- continue Statin; LDL 119
- A1c is 5.2%
- PT/OT/ST
- Neurology following; re-evaluate symptoms in 24 hours, may need repeat imaging if ongoing symptoms
Microcytic anemia probably chronic from menses
- Hemoglobin 9.5
- May be secondary to menstrual bleeding
- iron deficiency on labs
- IV Iron course
Essential hypertension
- Not on medications
DVT ppx: SCDs
Code: Full
Dispo: possible acute rehab placement pending HSRI/MA pending status. CM working on solutions for rehab options
Anticipated Discharge: 24 - 48 hours
Subjective/Interval History
-
Date of Service: November 15, 2024
earlier today with headache and also right facial sensory changes ongoing. + Nausea dizziness
Objective Data
-
Labs:
Laboratory Results
11/15/24
06:02
WBC 7.1
Hgb 9.4 L
Hct 30.6 L
Plt Count 309
Sodium 140
Potassium 3.7
Chloride 108 H
Carbon Dioxide 25
BUN 14
Creatinine 0.9
Glucose 78
Calcium 8.8
Vital Signs:
Vital Signs
Temp Pulse Resp BP Pulse Ox
98.7 F 62 16 159/99 97
11/15/24 15:43 11/15/24 15:43 11/15/24 15:43 11/15/24 15:43 11/15/24 15:43
I&O
11/14/24 11/15/24 11/16/24
06:59 06:59 06:59
Intake Total 220 / 220 420 / 420
Balance 220 / 220 420 / 420
Physical Exam
-
General: No Apparent Distress
HEENT: Normocephalic and Atraumatic
Respiratory: Clear to Auscultation; Negative Wheezes
Cardiac: Regular Rhythm
GI: Soft
Neuro: AO x 3
Psych: Calm
Data Reviewed
-
Total Time Spent with Patient (in minutes): 42
Labs: Labs Reviewed by me
[2024-11-15] MEDS: FEOSOL 325 MG PO (19:34)
[2024-11-16] VITALS (7 sets, daily range): BP systolic 136–171; BP diastolic 74–100; PULSE 67; O2SAT 96
[2024-11-16] MEDS: NSS (PRESERVATIVE FREE) 10 ML INJ ×3 (04:40→19:56)
[2024-11-16] MEDS: dimenhyDRINATE 50 MG IV ×3 (04:40→19:56)
[2024-11-16] MEDS: ZOFRAN 4 MG IV ×4 (05:09→23:49)
[2024-11-16 07:02] LABS: Blood Urea Nitrogen 13 mg/dl (7-17); Calcium 9.0 mg/dl (8.4-10.2); Carbon Dioxide 26 mmol/L (22-30); Chloride 107 mmol/L (98-107); Glucose 76 mg/dl (70-99); Potassium 3.8 mmol/L (3.5-5.1); Sodium 139 mmol/L (135-145); eGFR > 60.00
[2024-11-16 07:17] LABS: Hematocrit 31.8 % (37.0-47.0); Hemoglobin 9.5 g/dL (12.0-16.0); Mean Corp Hgb Conc. 29.9 g/dL (33.0-37.0); Mean Corpuscular Volume 74.8 fL (81.0-99.0); Platelet Count 316 10^3/uL (130-400); Red Cell Dist. Width 16.3 % (11.5-14.5)
[2024-11-16] MEDS: LOW STRENGTH ASPIRIN 81 MG PO (08:06)
--- NOTE | 2024-11-16 11:21 | W.PN.HOSP.TC ---
Today's Communication/Plan
-
continue ASA/Statin
follow Neuro recs
Assessment / Plan
Assessment / Plan
Assessment:
Acute Right cerebellar CVA with onset of vertigo/ataxia/facial numbness (right)
- MRI: 4.4 cm acute or subacute infarct in the right cerebellum
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 Mild flow in the mid to distal right vertebral artery, although smaller in caliber and again may be from retrograde or collateral blood flow.
- Echo: normal
- continue ASA. Plavix stopped per Neuro
- continue Statin; LDL 119
- A1c is 5.2%
- PT/OT/ST
- Neurology following
Microcytic anemia probably chronic from menses
- Hemoglobin 9.5
- May be secondary to menstrual bleeding
- iron deficiency on labs
- IV Iron course while inpatient
Essential hypertension
- Not on medications
DVT ppx: SCDs
Code: Full
Dispo: possible acute rehab placement pending HSRI/MA pending status. CM working on solutions for rehab options potentially home/VN options and outpatient therapy options.
Anticipated Discharge: 24 - 48 hours
Subjective/Interval History
-
Date of Service: November 16, 2024
resting comfortably
reports dizziness is now 5/10 instead of 10/10
no nausea
mild headache
no new symptoms; ongoing R ear hearing impairment
Objective Data
-
Labs:
Laboratory Results
11/16/24
06:07
WBC 8.5
Hgb 9.5 L
Hct 31.8 L
Plt Count 316
Sodium 139
Potassium 3.8
Chloride 107
Carbon Dioxide 26
BUN 13
Creatinine 0.8
Glucose 76
Calcium 9.0
Vital Signs:
Vital Signs
Temp Pulse Resp BP Pulse Ox
98.6 F 71 16 138/83 96
11/16/24 07:28 11/16/24 07:28 11/16/24 07:28 11/16/24 07:28 11/16/24 07:28
I&O
11/15/24 11/16/24 11/17/24
06:59 06:59 06:59
Intake Total 420 / 420 480 / 480
Balance 420 / 420 480 / 480
Physical Exam
-
General: No Apparent Distress
HEENT: Normocephalic and Atraumatic
Respiratory: Negative Wheezes
Cardiac: Regular Rhythm and S1/S2
GI: Soft and Nontender
Neuro: AO x 3
Psych: Calm
Data Reviewed
-
Total Time Spent with Patient (in minutes): 42
Labs: Labs Reviewed by me
[2024-11-16] MEDS: FERRLECIT 110 MG IV (11:24)
[2024-11-16] MEDS: LIPITOR 40 MG PO (16:55)
[2024-11-16] MEDS: FEOSOL 325 MG PO (19:56)
[2024-11-17] VITALS (7 sets, daily range): BP systolic 117–177; BP diastolic 73–94; PULSE 63; O2SAT 98
[2024-11-17] MEDS: NSS (PRESERVATIVE FREE) 10 ML INJ ×3 (04:57→19:35)
[2024-11-17] MEDS: dimenhyDRINATE 50 MG IV ×3 (04:57→19:35)
[2024-11-17] MEDS: ZOFRAN 4 MG IV ×4 (05:08→23:17)
[2024-11-17] MEDS: LOW STRENGTH ASPIRIN 81 MG PO (08:06)
--- NOTE | 2024-11-17 10:00 | W.PN.HOSP.TC ---
Today's Communication/Plan
-
ongoing evaluation of potential acute rehab placement
d/w CM team
Assessment / Plan
Assessment / Plan
Assessment:
Acute Right cerebellar CVA with onset of vertigo/ataxia/facial numbness (right)
- MRI: 4.4 cm acute or subacute infarct in the right cerebellum
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 Mild flow in the mid to distal right vertebral artery, although smaller in caliber and again may be from retrograde or collateral blood flow.
- Echo: normal
- continue ASA. Plavix stopped per Neuro
- continue Statin; LDL 119
- A1c is 5.2%
- PT/OT/ST
- Neurology following
Microcytic anemia probably chronic from menses
- Hemoglobin 9.5
- May be secondary to menstrual bleeding
- iron deficiency on labs
- IV Iron course while inpatient
Essential hypertension
- Not on medications
DVT ppx: SCDs
Code: Full
Dispo: possible acute rehab placement pending HSRI/MA pending status. CM working on solutions for rehab options potentially home/VN options and outpatient therapy options.
Anticipated Discharge: Within 24 hours
Subjective/Interval History
-
Date of Service: November 17, 2024
ambulating better
dizziness improving
Objective Data
-
Vital Signs:
Vital Signs
Temp Pulse Resp BP Pulse Ox
98.2 F 60 16 162/90 97
11/17/24 08:34 11/17/24 08:34 11/17/24 08:34 11/17/24 08:34 11/17/24 08:34
I&O
11/16/24 11/17/24 11/18/24
06:59 06:59 06:59
Intake Total 480 / 480 1040 / 1040
Balance 480 / 480 1040 / 1040
Physical Exam
-
General: No Apparent Distress
HEENT: Normocephalic and Atraumatic
Respiratory: Negative Wheezes
Cardiac: Regular Rhythm and S1/S2
GI: Soft
Genito-urinary: No Costovertebral Tender
Neuro: AO x 3
Psych: Calm
Data Reviewed
-
Total Time Spent with Patient (in minutes): 41
Labs: Labs Reviewed by me
--- NOTE | 2024-11-17 10:16 | CM ---
Addendum entered by Ella Guerra 11/17/24 14:06:
Spoke with patient bedside with [facility] rep. utilized the phone translator/interpreter to speak with patient. [facility] forms reviewed with patient and she is aware they need to be filled out and submitted as soon as possible. Per patient her spouse is
working on proof of income with his employer to provide to [facility] and will provide the same information for [facility]. Patient is aware outpatient physical therapy cannot be provided until she has ciara accepted by [facility].
updated and aware patient will not be able to receive home services or outpatient therapy at this time since she is not current with [facility].
Addendum entered by Ella Guerra 11/17/24 10:41:
TC back from Janis at the [facility]. Patient last seen there in 2021. They would need patient to reapply for services and provide current income, address, ID's etc. after application is received it will take approx 2 weeks to see if she
would be accepted to the clinic. No services can be provided until she is accepted into the clinic. Will provide application to patient.
Spoke with Viviana from [facility], she will speak with patient again, still requires information on income. CM will meet with [facility] in patients room at 1 pm to present application for [facility].
Original Note:
Left message for [facility] x [phone]. await TCB.
[2024-11-17] MEDS: FERRLECIT 110 MG IV (11:54)
[2024-11-17] MEDS: LIPITOR 40 MG PO (17:09)
[2024-11-17] MEDS: FEOSOL 325 MG PO (23:18)
[2024-11-18 03:00] VITALS: BP 131/71
[2024-11-18] MEDS: dimenhyDRINATE 50 MG IV ×2 (03:55→12:15)
[2024-11-18] MEDS: NSS (PRESERVATIVE FREE) 10 ML INJ ×2 (03:55→12:15)
[2024-11-18] MEDS: ZOFRAN 4 MG IV (06:35)
[2024-11-18 07:08] VITALS: BP 130/80
[2024-11-18] MEDS: LOW STRENGTH ASPIRIN 81 MG PO (08:05)
--- NOTE | 2024-11-18 09:32 | W.PN.HOSP.TC ---
Today's Communication/Plan
-
dc to home today
Assessment / Plan
Assessment / Plan
Assessment:
Acute Right cerebellar CVA with onset of vertigo/ataxia/facial numbness (right)
- MRI: 4.4 cm acute or subacute infarct in the right cerebellum
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 Mild flow in the mid to distal right vertebral artery, although smaller in caliber and again may be from retrograde or collateral blood flow.
- Echo: normal
- continue ASA. Plavix stopped per Neuro
- continue Statin; LDL 119
- A1c is 5.2%
- PT/OT/ST
- Neurology following
Microcytic anemia probably chronic from menses
- Hemoglobin 9.5
- May be secondary to menstrual bleeding
- iron deficiency on labs
- completed 5 day IV iron course in hospital
Essential hypertension
- Not on medications
DVT ppx: SCDs
Code: Full
Dispo: home. [facility] application in process to obtain outpatient PT/OT/ST services in ~ 2 week timeframe per CM. PT/OT/ST to provide resources for interval time period.
Anticipated Discharge: Today
Subjective/Interval History
-
Date of Service: November 18, 2024
dizziness stable
Objective Data
-
Vital Signs:
Vital Signs
Temp Pulse Resp BP Pulse Ox
97.9 F 60 16 130/80 97
11/18/24 07:08 11/18/24 07:08 11/18/24 07:08 11/18/24 07:08 11/18/24 07:08
I&O
11/17/24 11/18/24 11/19/24
06:59 06:59 06:59
Intake Total 1040 / 1040 600 / 600
Balance 1040 / 1040 600 / 600
Physical Exam
-
General: No Apparent Distress
HEENT: Normocephalic and Atraumatic
Respiratory: Negative Wheezes
Cardiac: Regular Rhythm and S1/S2
GI: Soft
Genito-urinary: No Costovertebral Tender
Neuro: AO x 3
Psych: Calm
Data Reviewed
-
Total Time Spent with Patient (in minutes): 41
Labs: Labs Reviewed by me
--- NOTE | 2024-11-18 10:14 | CM ---
Addendum entered by Anil Sampson 11/18/24 11:54:
PT can provide patient a RW
Original Note:
Chart reviewed. Plan is for patient to d/c home today
Spoke w/ hospitalist and PT, will provide patient w/ exercises to do at home. Script for RW available if patient is able to get one.
Patient has some follow up questions regarding the [facility] application, spoke w/ their team who called patient while CM was in the room
Plan: Home w/ therapy resources
--- NOTE | 2024-11-18 10:18 | W.DS.TRANS ---
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
-
Discharge Instructions:
Discharge Diagnosis/Procedures acute Cerebellar CVA
Diet Regular
Activity As tolerated
Other Services PT,OT,ST
Instructions:
Stand-Alone Forms:
Changes to Home Medications: No
Discharge Medications:
DC Medications w/original date entered in [facility]
amlodipine 2.5 mg tablet 2.5 mg PO DAILY #30 tabs 11/18/24
aspirin 81 mg chewable tablet 81 mg PO DAILY #100 tabs 11/18/24
atorvastatin 40 mg tablet 40 mg PO QPM #30 tabs 11/18/24
Home Medication Changes
Pending Results: No
Total time spent discharging patient (in min): 41
[2024-11-18 11:14] VITALS: BP 153/106
[2024-11-18 11:19] VITALS: BP 145/87
[2024-11-18 11:32] VITALS: BP 145/87; BP 153/88; PULSE 71; O2SAT 98
[2024-11-18] MEDS: NORVASC 2.5 MG PO (12:15)
[2024-11-18] MEDS: FERRLECIT 110 MG IV (12:16)
[2024-11-18 15:14] VITALS: BP 163/110
== END 2024-11-18 16:20 | disposition home or self-care (01) | DRG 66 ==
LOC: 4 WEST ACU 08:38
PROVIDERS: Clinical Nurse Specialist Family Health; Emergency Medicine; ADMITTING PHYSICIAN Hospitalist; ATTENDING PHYSICIAN Internal Medicine; CONSULT PHYSICIAN Psychiatry & Neurology Clinical Neurophysiology; EMERGENCY PHYSICIAN Emergency Medicine
DX: I63.211 Cerebral infarction due to unspecified occlusion or stenosis of right vertebral artery (principal); I10 Essential (primary) hypertension; D50.9 Iron deficiency anemia, unspecified; N92.0 Excessive and frequent menstruation with regular cycle; H54.7 Unspecified visual loss; R27.8 Other lack of coordination; R11.10 Vomiting, unspecified; R20.0 Anesthesia of skin; Z79.82 Long term (current) use of aspirin; Z79.899 Other long term (current) drug therapy; Z79.02 Long term (current) use of antithrombotics/antiplatelets
CPT/HCPCS: 70450; 70496; 70498; 70544; 70548; 70553; 80048; 80053; 80061; 81003; 82607; 82728; 82746; 83036; 83540; 83550; 83690; 83735; 84703; 85025; 85027; 86618; 92507; 92523; 92610; 93306; 96361; 96374; 96375; 97116; 97163; 97167; 97530; 97535; 99285; A9575; A9585; J1240; J2916; Q9967